=== PATIENT | female | born 1945 | race Caucasian/White ===

== ENCOUNTER 2021-02-01 14:52 | Outpatient (CLI) | payer MEDICARE, SELFPAY | END 2021-02-01 14:53 | disposition home or self-care (01) | LOC: ANHCOVIDVC 14:52 | PROVIDERS: PCP Family Medicine | DX: Z23 Encounter for immunization (principal) | CPT/HCPCS: 0001A; 91300 ==

== ENCOUNTER 2021-04-07 13:28 | Outpatient (CLI) | payer MEDICARE, OTHER, SELFPAY ==
--- NOTE | ~2021-04-07 | MMUS_ITS ---
EXAMINATION: MM diagnostic tomasz BI w tonio, US breast LT limited HISTORY: Pain in the lower outer left breast after COVID 19 vaccination TECHNIQUE: Craniocaudal, mediolateral, and mediolateral oblique 3-D tomosynthesis images of the breas ts were performed and synthetic 2-D images were generated. CAD analysis was submitted and interpreted . High resolution limited left breast ultrasound was performed. COMPARISON: 11/05/2018, 11/13/2016, 11/10/2015 BREAST PARENCHYMAL COMPOSITION: There are scattered areas of fibroglandular density. FINDINGS: MAMMOGRAPHIC FINDINGS: There are small, stable masses in both breasts which are considered benign given the lack of interval change. No new suspicious mass, calcification or architectural distortion are identified. There is n o mammographic correlate for the patient's reported left breast pain. ULTRASOUND: There is no evidence of focal abnormal solid or cystic mass in the vicinity of the reported left papa st pain. IMPRESSION: 1. No specific mammographic or sonographic correlate is identified for the patient's reported left br east pain. Further evaluation at this time should be based on clinical assessment. Continued follow-u p physical examination is recommended. 2. Recommend routine screening mammography in one year. BI-RADS Category 2: Benign finding(s). Reviewed, dictated and finalized at location A. IMPRESSION: 1. No specific mammographic or sonographic correlate is identified for the veronique ent's reported left breast pain. Further evaluation at this time should be base d on clinical assessment. Continued follow-up physical examination is recommend ed. 2. Recommend routine screening mammography in one year. BI-RADS Category 2: Benign finding(s).
== END 2021-04-07 13:29 | disposition home or self-care (01) ==
PROVIDERS: PCP Family Medicine; Visit Provider Obstetrics & Gynecology
DX: N64.4 Mastodynia (principal); R92.8 Other abnormal and inconclusive findings on diagnostic imaging of breast
CPT/HCPCS: 76642; 77062; 77066; G0279

== ENCOUNTER 2023-01-09 08:05 | Outpatient (CLI) | payer MEDICARE, SELFPAY ==
--- NOTE | ~2023-01-09 | MM_ITS ---
EXAMINATION: MM screening tomasz BI w tonio HISTORY: Screening TECHNIQUE: Craniocaudal and mediolateral oblique 3-D tomosynthesis images were obtained and synthetic 2-D images were generated. CAD analysis was submitted and interpreted. COMPARISON: Comparison to multiple prior studies sequentially, with oldest reviewed study dated 10/26. BREAST PARENCHYMAL COMPOSITION: Breast composed of scattered areas of fibroglandular density FINDINGS: There are new asymmetries centered in the lower outer quadrant of the right breast. The lef t breast is stable without evidence for malignancy. IMPRESSION: 1. New right breast asymmetries. 2. Additional mammographic views and possible breast ultrasound are recommended. BI-RADS Category 0: Incomplete: Needs additional imaging evaluation. Reviewed, dictated and finalized at location A. COMMUNICATION ENGINEER IMPRESSION: 1. New right breast asymmetries. 2. Additional mammographic views and possible breast ultrasound are recommended . BI-RADS Category 0: Incomplete: Needs additional imaging evaluation.
== END 2023-01-09 08:06 | disposition home or self-care (01) ==
PROVIDERS: PCP Family Medicine; Visit Provider Family Medicine
DX: Z12.31 Encounter for screening mammogram for malignant neoplasm of breast (principal); R92.8 Other abnormal and inconclusive findings on diagnostic imaging of breast
CPT/HCPCS: 77063; 77067

== ENCOUNTER 2024-11-18 09:11 | Emergency (ER) | payer MEDICARE, SELFPAY ==
[2024-11-18 09:22] VITALS: BP 150/84; PULSE 84; RESP 16; TEMP 36.7; O2SAT 98
--- NOTE | 2024-11-18 09:25 | ED.URI ---
HPI - URI/Sore Throat General Chief Complaint: Upper Respiratory Infection Stated Complaint: RUNNY NOSE/HEADACHE/COVID EXPOSURE Time Seen by Provider: 11/18/24 09:25 Source: patient Mode of arrival: ambulatory Limitations: no limitations History of Present Illness HPI Narrative: Jaylene is a 79-year-old female patient presenting to the clinic today with complaints of runny nose and headache. She reports she has had COVID exposure- had COVID last week. States her symptoms started yesterday with nonproductive cough, headache, and runny nose. She denies any fevers or chills. No shortness of breath or chest pain. MD elicited complaint: nasal congestion and other (Headache) Related Data Allergies Allergy/AdvReac Type Severity Reaction Status Date / Time No Known Allergies Allergy Unverified 10/22/19 12:05 Review of Systems Review of Systems: Pertinent positives per HPI. Patient denies any fever, chills, rash, headache, visual changes, dizziness, chest pain, palpitations, nausea, vomiting, diarrhea, constipation, abdominal pain, or any urinary issues. [facility] Past Medical History Medical History (Updated 11/18/24 @ 09:44 by Rangel Waller APRN) Strain of right groin BMI 30.0-30.9,adult Obesity (BMI 30.0-34.9) Iron deficiency BMI 31.0-31.9,adult Chronic neck pain BMI 34.0-34.9,adult Acute bronchitis Acute non-recurrent maxillary sinusitis Mixed hyperlipidemia total cholesterol 207, triglycerides 150, HDL 37 and LDL 142 on 10/18/2021 Overactive bladder Family History Family History Father Cerebrovascular accident Mother Family history of Alzheimer's disease, Onset Age: 87 Grandparent Family history of Alzheimer's disease, Onset Age: 85 Social History Social History Smoking status: Never smoker Alcohol intake: never Substance use: never Substance use type: does not use Comments At the time of my signature, I reviewed and agree with the nursing past medical, surgical, social, and family history. There is no relevant family history pertinent to the patient complaint. Exam Narrative: General: Well-developed, obese, in no apparent distress Head: Normocephalic, atraumatic Eyes: Pupils equally round and reactive to light bilaterally, EOM intact, sclera and conjunctive clear, no discharge, lids normal Ears: TMs intact and clear, ear canals clear, no drainage, grossly hearing normal. Nose: Nares patent, clear nasal discharge, no inflammation, no sinus tenderness. Mouth: Oral pharynx without lesions or masses, good dentition, MMM. Neck: Supple, trachea midline, no enlargement of anterior or posterior cervical nodes, no thyroid masses or goiter palpable. Cardio: Regular rate and rhythm, s1 and s2 normal, no murmur appreciated. Resp: Clear to auscultation bilaterally, no rhonchi, rales, wheezing or rubs Course Course Emergency Course: Portions of this record may have been created with voice recognition software. Level of Care: Express Care Visit Vital Signs Vital signs: Vital Signs Temperature 36.7 C 11/18/24 09:22 Pulse Rate 84 11/18/24 09:22 Respiratory Rate 16 11/18/24 09:22 Blood Pressure 150/84 H 11/18/24 09:22 Pulse Oximetry 98 11/18/24 09:22 Oxygen Delivery Room Air 11/18/24 09:22 Temperature 36.7 C 11/18/24 09:22 Pulse Rate 84 11/18/24 09:22 Respiratory Rate 16 11/18/24 09:22 Blood Pressure 150/84 H 11/18/24 09:22 Pulse Oximetry 98 11/18/24 09:22 Oxygen Delivery Room Air 11/18/24 09:22 Vital signs reviewed MDM - URI/Sore Throat MDM Narrative Medical decision making narrative: At the time of visit patient is resting comfortably on the exam table. Patient appears to be nontoxic. Labs: COVID test and influenza B was positive in the clinic today. Plan: Patient has COVID-19 and influenza B. reviewed patient's labs on my chart and her kidney function was within normal limits. Will prescribe Paxlovid and Tamiflu per patient and family request. Risk and benefits were reviewed and family and patient voiced understanding. Supportive measures were discussed with the patient and they voiced understanding discharge instructions and agrees to treatment plan. Return precautions reviewed Differential Diagnosis Differential diagnosis: Likely upper respiratory infection, otitis media, sinusitis, viral infection, bronchitis, influenza, pharyngitis and other (COVID) Lab Data Labs: Lab Results 11/18/24 11/18/24 Range/Units 09:34 09:54 POC Influenza A Ag Negative (Negative) POC Influenza B Ag Positive (Negative) POC SARS CoV-2 Ag Positive (Negative) Discharge Plan Discharge Clinical Impression: COVID-19, Influenza B Patient Disposition: Home, Self-Care Condition: Stable Instructions: Antibiotic Form, Influenza (ED), How to Recover from COVID-19 at Home (ED) Additional Instructions: COVID testing and influenza B was positive in the clinic today. May take Coricidin HBP for cold/flu symptoms Take Paxlovid and Tamiflu as prescribed Wear a mask and trying to stay at least 6 ft away from people Practice good hand washing techniques Increase fluids and stay well hydrated Tylenol/motrin for pain/fever Flonase and OTC antihistamines as directed Vicks vapor rub to open sinuses Sinus rinses for congestion Cepacol spray, cough drops, throat lozenges, warm tea with honey/lemon, gargle salt water to soothe throat BRAT diet for diarrhea Clear liquids x 24 hours then advance as tolerated for nausea/vomiting Go to the ED if you develop a worsening in your condition- high fever not controlled by Tylenol or Motrin, dehydration, weakness, lethargy, shortness of breath, or chest pain. Follow up with your PCP in 3-5 days if symptoms persist. You will be considered no longer contagious whenever you are fever free and your symptoms have improved. Patient Language: Citizen Of [place] Prescriptions: New Paxlovid 300 mg (150 mg x 2)-100 mg tablets,dose pack See Rx Instructions PO .COMPLEX Qty: 30 0RF Rx Instructions: take TWO 150 mg tablets of nirmatrelvir with ONE 100 mg tablet of ritonavir twice daily for 5 days oseltamivir [Tamiflu] 75 mg capsule 75 mg PO Q12H 5 Days Qty: 10 0RF No Action cholecalciferol (vitamin D3) 125 mcg (5,000 unit) capsule 5,000 unit PO DAILY Qty: 30 11RF losartan 100 mg tablet 100 mg PO DAILY Qty: 90 0RF spironolactone 50 mg tablet 50 mg PO DAILY Qty: 90 0RF Follow-up/Referrals: Valeria,Osmel Mcfarlane MD [Primary Care Provider] - Time of Disposition: 09:41 Quality NIHSS Nursing Documentation ED NIHSS nursing documentation: reviewed/agree
[2024-11-18 09:36] LABS: EDCOVIDSCREEN Positive (Negative)
[2024-11-18 09:56] LABS: EDINFLUASCREEN Negative (Negative); EDINFLUBSCREEN Positive (Negative)
== END 2024-11-18 10:02 | disposition home or self-care (01) ==
PROVIDERS: Emergency Provider Nurse Practitioner Family; PCP Family Medicine
DX: U07.1 COVID-19 (principal); J10.1 Influenza due to other identified influenza virus with other respiratory manifestations; E78.2 Mixed hyperlipidemia
CPT/HCPCS: 87426; 87804; 99213; G0463